=== PATIENT | female | born 1980 | race Caucasian/White ===

== ENCOUNTER → 2019-04-30 13:30 | Outpatient (CLI) | payer OTHER, SELFPAY ==
--- NOTE | 2019-04-30 | CA_ITS ---
APPROVED REPORT EXAM: Comprehensive 2D, Doppler, and color-flow Echocardiogram Eyeglass Assembler: Pari Martinez CRT Ht: 5 ft 5 in Wt: 114lbs BSA: 1.56 BP: 140/90 mmHg Indications: Murmur, Hypertension/HDD, ,SMOKER, 13# WEIGHT GAIN IN 6 WEEKS, PALP, HAND EDEMA, 2D Dimensions LVOT 1.82 cm (M/F) 1.5-2.5 M-Mode Dimensions RVDd 1.98 cm (0.9-2.6) LVDd 4.13 cm (3.5-5.7) LVDs 2.68 cm (3.5-5.7) IVSd 1.13 cm (0.6-1.1) PWd 0.94 cm (0.6-1.1) EF (Teich) 64.90% FS 35.10% EDV (Teich) 75.50 mL ESV (Teich) 26.50 mL LV Diastology E/A Ratio 1.23 Mitral Valve MV A Velocity 60.00 (40-130 cm/s) Left Ventricle Left atrium is normal size, left ventricle is normal size, there is no concentric left ventricular hypertrophy, visually estimated ejection fraction 55% with no regional wall motion abnormality. Diastolic parameters are within normal range. Right Ventricle Right atrium and right ventricular normal size and contractility. Aortic Valve Aortic valve is grossly normal, there is no aortic stenosis or aortic insufficiency. Mitral Valve Mitral valve is grossly normal, there is no mitral stenosis, there is trace mitral regurgitation. Tricuspid Valve Tricuspid valve is grossly normal, there is trace tricuspid regurgitation, tricuspid regurgitation jet velocity is inadequate for calculation of the right ventricular systolic pressure. Pulmonic Valve Pulmonic valve is poorly visualized. Great Vessels Aortic root is normal size. Pericardium No significant pericardial effusion noted. Conclusion 1. Normal left ventricular size, preserved left ventricular systolic function, visually estimated ejection fraction 55% with no regional wall motion abnormality, diastolic parameters are within normal range. 2. Trace mitral and tricuspid regurgitation of no hemodynamic significance. 3. No significant pericardial effusion noted. Electronically signed by : Sreekanth Liao, 04/30/2019 15:55:17
== END ==
PROVIDERS: PCP Family Medicine; Visit Provider Family Medicine
DX: R01.1 Cardiac murmur, unspecified (principal)
CPT/HCPCS: 93306

== ENCOUNTER → 2019-05-07 09:31 | Outpatient (CLI) | payer OTHER, SELFPAY ==
[2019-05-07 10:00] LABS: Basophils % 0.4 % (0.1-2.0); Eosinophils # 0.2 K/mm3 (0.0-0.4); Eosinophils % 2.1 % (0.1-12.0); Hematocrit 35.9 % (37.0-47.0); Hemoglobin 11.5 g/dL (12.2-16.2); Lymphocytes # 1.7 K/mm3 (0.7-4.5); Lymphocytes % 20.5 % (10-50); Mean Corpuscular Hemoglobin 28.1 pg (27.0-31.2); Mean Corpuscular Volume 87.8 fl (81-99); Mean Platelet Volume 7.2 fl (7.4-10.4); Monocytes # 0.4 K/mm3 (0.1-1.0); Monocytes % 4.2 % (1.7-9.3); Neutrophils % 72.7 % (37.0-80.0); Platelet Count 255 K/mm3 (142-424); Red Blood Count 4.09 M/mm3 (4.20-5.40); Red Cell Distribution Width 14.3 % (11.5-17.5); White Blood Count 8.2 K/mm3 (4.8-10.8)
[2019-05-07 18:28] LABS: Alanine Aminotransferase 21 U/L (12-78); Albumin Level 3.9 gm/dL (3.4-5.0); Albumin/Globulin Ratio 1.4 (1.1-1.8); Alkaline Phosphatase 74 U/L (46-116); Anion Gap 16.9 mEq/L (5-15); Aspartate Amino Transferase 21 U/L (15-37); Bilirubin,Total 0.3 mg/dL (0.2-1.0); Blood Urea Nitrogen 14 mg/dL (7-18); Calcium 8.2 mg/dL (8.5-10.1); Carbon Dioxide 23 mmol/L (21.0-32.0); Chloride 104 mmol/L (98-107); Chol/HDL Ratio 2.5 (1-3.5); Cholesterol 106 mg/dL (140-200); Creatinine,Serum 0.74 mg/dL (0.55-1.02); Estimated Glomerular Filt Rate 88 ml/min (>60); GFR (African American) 107 ML/MIN (>60); Globulin 2.7 gm/dl (1.3-3.2); Glucose 81 mg/dL (74-106); HDL Cholesterol 42 mg/dL (29-89); LDL Cholesterol 45 mg/dL (0-130); Potassium 3.9 mmoL/L (3.5-5.1); Sodium 140 mmol/L (136-145); Thyroid Stimulating Hormone 1.27 uIU/ml (0.358-3.740); Total Protein,Serum 6.6 gm/dL (6.4-8.2); Triglycerides 95 mg/dL (30-200); VLDL Cholesterol 19 mg/dL (0-40)
== END ==
PROVIDERS: Visit Provider Family Medicine
DX: I10 Essential (primary) hypertension (principal); F41.9 Anxiety disorder, unspecified
CPT/HCPCS: 36415; 80053; 80061; 84443; 85025

== ENCOUNTER 2019-11-02 09:54 | Emergency (ER) | payer MEDICAID, SELFPAY ==
[2019-11-02 10:02] VITALS: BP 151/93; PULSE 84; RESP 17; TEMP 37; O2SAT 100; BMI 19.3
--- NOTE | 2019-11-02 10:05 | XR_ITS ---
PROCEDURE: XR HAND RT MIN 3V CLINICAL INDICATION: injury/.pain COMPARISON: No exams were available for comparison FINDINGS: No fracture or dislocation. No lytic or blastic change. There is normal mineralization. The joint spaces are well-preserved. No significant degenerative/arthritic changes. No erosive changes evident. Other findings:None. IMPRESSION: No acute findings. Dictated b Yariel Woods MD 11/02/2019 13:21 Yariel Woods MD in [place] 11/02/2019 13:21
--- NOTE | 2019-11-02 10:12 | [facility].EDGENADL ---
ED Disposition Clinical Impression: Fracture, metacarpal shaft Qualifiers: Encounter type: initial encounter Metacarpal bone: unspecified metacarpal Fracture type: closed Fracture alignment: nondisplaced Qualified Code(s): S62.359A - Nondisplaced fracture of shaft of unspecified metacarpal bone, initial encounter for closed fracture Disposition: Home, Self-Care Condition on Discharge: Good Instructions: DI for a Hand Fracture Additional Instructions: Follow-up next week for repeat x-ray and further care. Tylenol for pain. If you have any new, changing, worsening, or concerning symptoms, come back to the emergency department. Referrals: Franco Deluna MD [Primary Care Provider] - Time of Disposition: 10:44 - Critical Care Critical Care Time: No Attestation: On , the high probability of a clinically significant, sudden or life threatening deterioration of the following system(s) required my full and direct attention, intervention and personal management. The time I documented below is in addition to time spent performing reported procedures but includes the following listed in this critical care notation. Medical Decision Making - Medical Records Medical records reviewed: Yes: I reviewed the patient's medical records. MR Comment: 39-year-old female with history of hypertension presents emergency department with right hand pain since a fall. She does have mild tenderness and swelling over her fourth and fifth metacarpals of the right hand full range of motion with no tenderness of the rest of the right upper extremity including the wrist. Will get an x-ray of the hand and reassess. She remains well. Subtle cortical irregularity over the area where she is tender and swollen, no obvious fracture, but given her pain will put her in a ulnar gutter for follow-up next week. She was given strict return precautions and discharge instructions verbalized understanding and agreement to the plan. Safe to discharge. - Pawan Inquiry Pt receiving controlled substance: No Vital Signs: 11/02/19 10:02 11/02/19 11:07 Temperature 98.6 F 98.6 F Temperature Source Oral Oral Pulse Rate 70 Pulse Rate [Right Radial] 84 Respiratory Rate 17 16 Blood Pressure 150/92 H Blood Pressure [Right Arm] 151/93 H Blood Pressure Mean [Right Arm] 112 Blood Pressure Source Automatic Cuff Blood Pressure Position Sitting 02 Sat by Pulse Oximetry 100 Oxygen Delivery Method Room Air Room Air General Adult HPI - General Chief complaint: Extremity Injury, Upper Stated complaint: ao 11/02/19 fell right hand pain Time Seen by Provider: 11/02/19 10:12 Mode of Arrival: Ambulatory Limitations: No Limitations Description of Symptoms (Recalled from ER Triage Doc. by RN): pt reported to exam 9 with c/o right hand pain. pt states that she fell over her ferrett at 0100 landing on her hand - History of Present Illness HPI narrative: 39-year-old female presents emergency department with right hand pain since around midnight when she tripped over her pet ferret. She states that she tried to brace her fall with that hand and has had pain since she denies any pain in the right wrist, shoulder, elbow she denies striking her head during this fall or LOC. She states that nothing makes her pain better movement of her fingers makes it worse. She denies any numbness or tingling. She denies any other symptoms complaints or concerns at this time. - Related Data Home Medications Medication Instructions Recorded Confirmed LORazepam [Lorazepam] 0.5 mg PO BID 05/18/19 05/18/19 Sertraline HCl [Zoloft 50mg tablet] 100 mg PO DAILY 05/18/19 05/18/19 lisinopriL [Lisinopril 10mg Tab] 10 mg PO DAILY 05/18/19 05/18/19 Previous Rx's Medication Instructions Recorded Amoxicillin/Potassium Clav 1 tab PO Q12H 7 Days #14 tab 05/18/19 [Augmentin 875-125 Tablet] Fluticasone Propionate [Flonase 1 spr NS DAILY #1 bottle 05/18/19 50mcg nasal spray 16gm] pratibha
[2019-11-02 11:07] VITALS: BP 150/92; PULSE 70; RESP 16; TEMP 37; O2SAT 100
== END 2019-11-02 11:08 | disposition home or self-care (01) ==
PROVIDERS: Emergency Provider Emergency Medicine; PCP Family Medicine
DX: S62.351A Nondisplaced fracture of shaft of second metacarpal bone, left hand, initial encounter for closed fracture (principal); W01.0XXA Fall on same level from slipping, tripping and stumbling without subsequent striking against object, initial encounter; Y92.013 Bedroom of single-family (private) house as the place of occurrence of the external cause; I10 Essential (primary) hypertension; F17.210 Nicotine dependence, cigarettes, uncomplicated
CPT/HCPCS: 29125; 73130; 99284

== ENCOUNTER → 2019-11-22 14:08 | Outpatient (CLI) | payer MEDICAID, SELFPAY ==
--- NOTE | 2019-11-22 14:13 | XR_ITS ---
PROCEDURE: XR HAND RT MIN 3V CLINICAL INDICATION: PAIN IN R HAND Fifth metacarpal pain, fall with injury and pain COMPARISON: CR XR HAND RT MIN 3V from 11/02/2019 FINDINGS: A nondisplaced fracture oblique in nature involves the proximal shaft of the 5th metacarpal. The joint spaces are well-preserved. No significant degenerative/arthritic changes. No erosive changes evident. Other findings:No other significant anomalies evident. IMPRESSION: Nondisplaced oblique fracture proximal aspect 5th metacarpal Dictated by: Yariel Woods MD 11/22/2019 14:49 Yariel Woods MD in [place] 11/22/2019 14:49
== END ==
PROVIDERS: PCP Family Medicine; Visit Provider Family Medicine
DX: M79.641 Pain in right hand (principal)
CPT/HCPCS: 73130

== ENCOUNTER → 2019-12-20 08:17 | Outpatient (CLI) | payer MEDICAID, SELFPAY ==
--- NOTE | 2019-12-20 08:28 | XR_ITS ---
PROCEDURE: XR HAND RT MIN 3V CLINICAL INDICATION: rt 5th MC Follow-up fracture COMPARISON: No exams were available for comparison FINDINGS: There is a healing fracture involving the proximal shaft of the 5th metacarpal with developing callus formation. There is good alignment with only minimal radial angulation of the distal fracture fragment. IMPRESSION: Healing 5th metacarpal fracture Dictated by: Yariel Woods MD 12/20/2019 13:44 Yariel Woods MD in [place] 12/20/2019 13:44
== END ==
PROVIDERS: PCP Family Medicine; Visit Provider Orthopaedic Surgery
DX: S62.35 Nondisplaced fracture of shaft of other metacarpal bone (principal)
CPT/HCPCS: 73130